=== PATIENT | female | born 1980 | race Caucasian/White ===

== ENCOUNTER → 2017-08-02 09:55 | Outpatient (CLI) | payer OTHER, SELFPAY ==
--- NOTE | 2017-08-02 10:12 | MRI_ITS ---
STUDY: MR LEFT HIP ARTHROGRAPHY REASON FOR EXAM: Lateral left hip pain, no specific injury. TECHNIQUE: Standardized fat and water weighted pulse sequences were obtained in all 3 orthogonal planes after intra-articular instillation of dilute Magnevist by Dr. Baum. Although most of the contrast is extravasated anterior to the hip joint, there is a very small amount of contrast within the hip joint. COMPARISON: None. FINDINGS: Normal hip joint without articular joint space narrowing. Normal acetabulum. There is a small tear of the anterosuperior labrum (T2 sagittal images 9, 10) with a lobulated paralabral cyst (T2 sagittal images 10-12) measuring 3.1 cm in length. Normal femoral head. Normal femoral neck and intratrochanteric region. Normal gluteus minimus, medius and iliopsoas tendons and distal insertions. There is no trochanteric, iliopsoas or iliopectineal bursitis. Normal superior and inferior pubic rami. Normal pubic symphysis. Normal ischial tuberosity. Normal origin of the hamstring tendons. Normal visualized iliac wing, sacroiliac joint, and sacral ala. There is a small cyst at the posterior aspect of the distal iliopsoas muscle (T2 coronal images 11, 13) measuring 1.3 cm in length. MRI/Lower Ext/Jt Only/W Contrast IMPRESSION: Small labral tear with paralabral cyst. Small cyst at the posterior aspect of the distal iliopsoas muscle. Electronically Signed: Nickolas Corrales MD at 13:10 EST Tel , Service support ,
--- NOTE | 2017-08-02 10:29 | RAD_ITS ---
CLINICAL HISTORY: Female, 37 years old. Left hip pain. PROCEDURE: ARTHROGRAM - LEFT HIP. CONSENT: The procedure as well as the benefits and possible complications including infection and bleeding were expanded to the patient. Informed consent was then obtained. FLUOROSCOPY TIME (if supplied): (0:51) minutes/seconds Injection Information: 10 cc of dilute Magnevist. Number of images obtained: 3 TECHNIQUE: (All elements of maximal sterile barrier technique followed, including US elements as applicable) The patient was in the supine position. The overlying skin was prepped and draped and the usual sterile fashion. Following local anesthetic complications and under direct fluoroscopic guidance, a 22-gauge spinal needle was advanced into the hip joint. 2 cc of Isovue-300 was injected for confirmation. Following this, 10 cc of dilute Magnevist was injected. The patient tolerated the procedure well. MRI will follow. RAD/Arthrogram Hip w/ MRI IMPRESSION: Successful left hip arthrogram with injection of dilute Magnevist. The patient tolerated the procedure well. Electronically Signed: Dexter Baum MD at 12:20 EST Tel [phone], Service support ,
== END ==
PROVIDERS: Visit Provider Specialist
DX: M25.552 Pain in left hip (principal)
CPT/HCPCS: 27093; 73722; 77002; A9577; Q9967

== ENCOUNTER → 2023-10-31 | Outpatient (CLI) | payer OTHER, SELFPAY ==
--- NOTE | 2023-10-31 11:46 | RAD_ITS ---
STUDY: X-RAY - ABDOMEN/PELVIS REASON FOR EXAM: Female, 43 years old. Kidney stones. TECHNIQUE: PICC line COMPARISON: None. FINDINGS: Normal bowel gas pattern with air seen to the rectum. Moderate amount of feces in the colon. Intra-abdominal contours and especially the renal contours are obscured by overlying bowel gas and feces. No contour abnormality identified. Phleboliths. Mild arthrosis of both hips. RAD/Abdomen Single View IMPRESSION: No acute abnormality of the visualized abdomen or pelvis. No renal stones identified. Electronically Signed: Mateusz Cortes MD at 12:41 EDT ,
== END | disposition home or self-care (01) ==
PROVIDERS: Referring Provider Urology; Visit Provider Urology
DX: N20.0 Calculus of kidney (principal)
CPT/HCPCS: 74018